=== PATIENT | female | born 1955 | race Caucasian/White ===

== ENCOUNTER 2016-10-07 16:18 | Emergency (ER) | payer MEDICAID ==
[~2016-10-07] VITALS: Wt 71.0 kg
[~2016-10-07 16:18] MED LIST: ACET500C5 PO; GUAI120S26 PO; ONDA4TAB14 PO
--- NOTE | 2016-10-07 17:07 | ERD ---
ER Documentation Chief Complaint Date/Time DATE: 10/07/16 TIME: 17:04 Chief Complaint DYSURIA X 5 DAYS; DENIES AP HPI This 61-year-old female who presents to the emergency department today complaining of burning and pain with urination for the past 5 days. Patient states when she urinates she only urinates a small amount per she has not taken any medication for the pain. Denies any back pain, fevers or chills, abdominal pain. ROS All systems reviewed and are negative except as per history of present illness. Medications Home Meds Active Scripts Acetaminophen* (Tylophen*) 500 Mg Capsule, 1 CAP PO Q6H Y for PAIN AND OR ELEVATED TEMP, #30 CAP Prov:JENAE COOLEY PA-C 10/07/16 Nitrofurantoin Monohyd Macrocr* (Macrobid*) 100 Mg Capsr, 100 MG PO BID for 7 Days, CAP Prov:JENAE COOLEY PA-C 10/07/16 Iuszudzfmnz-E-Ucqfxrbwwu Hb* (Guaifenesin* DM Syrup) 120 Ml Syrup, 10 ML PO Q4H Y for COUGH, #120 ML Prov:ZIYAD REY PA-C 07/11/16 Acetaminophen* (Tylophen*) 500 Mg Capsule, 1 CAP PO Q6H Y for PAIN AND OR ELEVATED TEMP, #20 CAP Prov:ZIYAD REY PA-C 07/11/16 Ondansetron (Ondansetron Odt) 4 Mg Tab.rapdis, 4 MG PO Q6H Y for NAUSEA AND/OR VOMITING, #10 TAB Prov:ZIYAD REY PA-C 07/11/16 Allergies Allergies: Coded Allergies: Penicillins (Verified Allergy, Mild, 07/11/16) PMhx/Soc Hx Alcohol Use: No Hx Substance Use: No Hx Tobacco Use: No Physical Exam Vitals Vital Signs Date Time Temp Pulse Resp B/P Pulse Ox O2 Delivery O2 Flow Rate FiO2 10/07/16 16:23 98.0 86 18 135/90 99 Physical Exam Const: No acute distress Head: Atraumatic Eyes: Normal Conjunctiva ENT: Normal External Ears, Nose and Mouth. Neck: Full range of motion..~ No meningismus. Resp: Clear to auscultation bilaterally Cardio: Regular rate and rhythm, no murmurs Abd: Soft, non tender, non distended. Normal bowel sounds Skin: No petechiae or rashes Back: No midline or flank tenderness. No CVA tenderness. Neur: Awake and alert Psych: Normal Mood and Affect Results 24 hrs Laboratory Tests Test 10/07/16 17:44 Bedside Urine pH (LAB) 8.5 Bedside Urine Protein (LAB) Trace Bedside Urine Glucose (UA) Negative Bedside Urine Ketones (LAB) Negative Bedside Urine Blood Trace-intact Bedside Urine Nitrite (LAB) Negative Bedside Urine Leukocyte Esterase (L 3+ Procedures/MDM This is a 61-year-old female who presents the emergency department today for burning and pain with urination for the past 5 days. I did obtain a UA UA shows 3+ leukocyte esterase. Negative nitrites. Patient will be treated with Macrobid for urinary tract infection. Patient is afebrile and otherwise well-appearing. She has no back pain and no CVA tenderness. Low suspicion for pyelonephritis, nephrolithiasis. I do not feel the patient requires further laboratory workup or imaging at this time. Patient also be given a prescription for Tylenol for pain At this time the patient is stable for discharge and outpatient management. Patient should follow up with their PCP in the next 1-2 days. They may return to the emergency department sooner for any persistent or worsening of symptoms. Patient understood and agreed with the plan. Departure Diagnosis: Primary Impression: UTI (urinary tract infection) Urinary tract infection type: site unspecified Hematuria presence: without hematuria Qualified Code: N39.0 - Urinary tract infection without hematuria, site unspecified Condition: JENAE Rocha PA-C Oct 07, 2016 17:07
[2016-10-07 17:44] LABS: URINE BLOOD (Dip) POC Trace-intact (NEGATIVE)
[2016-10-07] MEDS ORDERED: ACET500C5 PO (17:48)
[2016-10-07] MEDS ORDERED: NITR-58 PO (17:48)
== END 2016-10-07 17:57 | disposition home or self-care (01) ==
LOC: FTE 16:18
DX: N39.0 Urinary tract infection, site not specified (principal)
CPT/HCPCS: 81003; Z7502; 99283

== ENCOUNTER 2016-12-17 07:33 | Emergency (ER) | payer MEDICAID ==
[~2016-12-17] VITALS: Ht 157.5 cm; Wt 60.5 kg
[~2016-12-17 07:33] MED LIST changes: +NITR-58 PO
[2016-12-17 07:36] VITALS: Ht 157.5 cm; Wt 60.5 kg
[2016-12-17] MEDS ORDERED: ACETAMINOPHEN 500 MG TAB PO STA (08:03)
--- NOTE | 2016-12-17 08:31 | ERD ---
ER Documentation Chief Complaint Date/Time DATE: 12/17/16 TIME: 08:29 Chief Complaint dysuria x 8 days HPI 61-year-old female who presents the emergency department today complaining of pain with urination for the past 8 days. She states she has some pain that goes into her back. States that she did not call her primary care doctor because they are not open. Patient was also requesting a refill on her blood pressure medication. Denies any headache, dizziness, fevers or chills, nausea or vomiting. ROS All systems reviewed and are negative except as per history of present illness. Medications Home Meds Active Scripts Acetaminophen* (Tylophen*) 500 Mg Capsule, 1 CAP PO Q6H Y for PAIN AND OR ELEVATED TEMP, #30 CAP Prov:JENAE COOLEY-C 12/17/16 Hydrochlorothiazide* (Hydrochlorothiazide*) 25 Mg Tab, 25 MG PO DAILY, #30 TAB Prov:JENAE COOLEYC 12/17/16 Enalapril Maleate* (Enalapril Maleate*) 20 Mg Tablet, 20 MG PO DAILY, #30 TAB Prov:JENAE COOLEY-C 12/17/16 Cephalexin* (Keflex*) 500 Mg Capsule, 500 MG PO QID for 7 Days, CAP Prov:JENAE COOLEY-C 12/17/16 Acetaminophen* (Tylophen*) 500 Mg Capsule, 1 CAP PO Q6H Y for PAIN AND OR ELEVATED TEMP, #30 CAP Prov:JENAE COOLEYC 10/07/16 Nitrofurantoin Monohyd Macrocr* (Macrobid*) 100 Mg Capsr, 100 MG PO BID for 7 Days, CAP Prov:JENAE COOLEY-C 10/07/16 Qyvmcgbyini-U-Onkaphmegq Hb* (Guaifenesin* DM Syrup) 120 Ml Syrup, 10 ML PO Q4H Y for COUGH, #120 ML Prov:ZIYAD REY PA-C 07/11/16 Acetaminophen* (Tylophen*) 500 Mg Capsule, 1 CAP PO Q6H Y for PAIN AND OR ELEVATED TEMP, #20 CAP Prov:ZIYAD REY PA-C 12/26/16 Ondansetron (Ondansetron Odt) 4 Mg Tab.rapdis, 4 MG PO Q6H Y for NAUSEA AND/OR VOMITING, #10 TAB Prov:REYZIYAD Michelle REYES 07/11/16 Allergies Allergies: Coded Allergies: Penicillins (Verified Allergy, Mild, 12/17/16) PMhx/Soc History of Surgery: Yes (hernia repair ) Anesthesia Reaction: No Hx Neurological Disorder: No Hx Respiratory Disorders: No Hx Cardiac Disorders: Yes (htn) Hx Psychiatric Problems: No Hx Miscellaneous Medical Probl: No Hx Alcohol Use: No Hx Substance Use: No Hx Tobacco Use: No Smoking Status: Never smoker Physical Exam Vitals Vital Signs Date Time Temp Pulse Resp B/P Pulse Ox O2 Delivery O2 Flow Rate FiO2 12/17/16 07:36 98.0 67 18 190/84 99 Physical Exam Const: No acute distress Head: Atraumatic Eyes: Normal Conjunctiva ENT: Normal External Ears, Nose and Mouth. Neck: Full range of motion..~ No meningismus. Resp: Clear to auscultation bilaterally Cardio: Regular rate and rhythm, no murmurs Abd: Soft, suprapubic tenderness non distended. Normal bowel sounds Skin: No petechiae or rashes Back: No midline tenderness. Bilateral paraspinal tenderness. No CVA tenderness. Ext: No cyanosis, or edema Neur: Awake and alert Psych: Normal Mood and Affect Results 24 hrs Laboratory Tests Test 12/17/16 08:10 Urine Color LT. YELLOW Urine Clarity CLEAR Urine pH 7.5 Urine Specific [place] 1.010 Urine Ketones NEGATIVE Urine Nitrite NEGATIVE Urine Bilirubin NEGATIVE Urine Urobilinogen 0.2 E.U./dL Urine Leukocyte Esterase 1+ Urine Microscopic RBC 10-25/HPF Urine Microscopic WBC >50/HPF Urine Epithelial Cells MANY Urine Bacteria MANY Urine Mucus MANY Urine Hemoglobin TRACE Urine Glucose NEGATIVE% Urine Total Protein 1+ Current Medications Medications (Trade) Dose Ordered Sig/Pierce Route PRN Reason Start Time Stop Time Status Last Admin Dose Admin Acetaminophen (Tylenol Tab) 500 mg ONCE STAT PO 12/17/16 08:03 12/17/16 08:04 DC 12/17/16 08:09 Procedures/MDM This 61-year-old female who presents to the emergency department today complaining of burning and pain with urination for the past 8 days. Saw this patient for similar symptoms in September 2016 and was treated with Macrobid for a urinary tract infection with 3+ leuks. Today, I did obtain a UA again that shows 1+ leukocyte esterase and greater than 50 microscopic white blood cells. Patient was given a prescription for Keflex. Patient does have a penicillin allergy however she only develops a rash. I am aware of this.. She is afebrile and otherwise well-appearing. Low suspicion for pyelonephritis or nephrolithiasis. Patient was given Tylenol here in the emergency department. Patient blood pressure is elevated at 190/84. She denied any headache or dizziness and I do not feel that she requires further workup at this time. Low suspicion for hypertensive emergency or hypertensive urgency. She did run out of her blood pressure medication. Patient takes hydrochlorothiazide and enalapril. I have explained her that I will give her a short refill for her medications but that she needs to get an appoint with her primary care physician for more medication. Patient understood. At this time the patient is stable for discharge and outpatient management. Patient should follow up with their PCP in the next 1-2 days. They may return to the emergency department sooner for any persistent or worsening of symptoms. Patient understood and agreed with the plan. Discussed the patient with Dr. Lenz and he is in agreement with the plan. Departure Diagnosis: Primary Impression: UTI (urinary tract infection) Urinary tract infection type: site unspecified Hematuria presence: without hematuria Qualified Code: N39.0 - Urinary tract infection without hematuria, site unspecified Additional Impression: Medication refill Condition: JENAE Rocha PA-C Dec 17, 2016 08:31
[2016-12-17 08:38] LABS: ADD UMIC YES; URINE BILIRUBIN (Dip) NEGATIVE (NEGATIVE); URINE BLOOD (Dip) TRACE (NEGATIVE); URINE COLOR LT. YELLOW (YELLOW); URINE GLUCOSE (Dip) NEGATIVE (NEGATIVE); URINE KETONES (Dip) NEGATIVE (NEGATIVE); URINE LEUKOCYTE ESTERASE (Dip) 1+ (NEGATIVE); URINE NITRITE (Dip) NEGATIVE (NEGATIVE); URINE TOTAL PROTEIN (Dip) 1+ (NEGATIVE); URINE UROBILINOGEN (Dip) 0.2 E.U./dL (0.1-1.0)
[2016-12-17 08:51] LABS: BACTERIA,URINE MANY; MUCUS,URINE MANY
[2016-12-17] MEDS ORDERED: CEPH-443 PO (09:06)
[2016-12-17] MEDS ORDERED: ENAL20TA PO (09:07)
[2016-12-17] MEDS ORDERED: HYD25 PO (09:07)
[2016-12-17] MEDS ORDERED: ACET500C5 PO (09:08)
[2016-12-17 09:13] VITALS: BP 156/78; PULSE 77; RESP 18; TEMP 97.9
== END 2016-12-17 09:14 | disposition home or self-care (01) ==
LOC: FTE 07:33
DX: N39.0 Urinary tract infection, site not specified (principal); I10 Essential (primary) hypertension; Z76.0 Encounter for issue of repeat prescription
CPT/HCPCS: 81001; Z7610; 99284

== ENCOUNTER 2018-06-05 17:14 | Emergency (ER) | END 2018-06-05 18:43 | disposition home or self-care (01) ==